=== PATIENT | female | born 1995 | race Caucasian/White ===

== ENCOUNTER 2017-07-07 06:43 | Emergency (ER) | payer OTHER ==
[2017-07-07 06:58] VITALS: BMI 25.0
[2017-07-07 07:04] VITALS: PULSE 78
--- NOTE | 2017-07-07 08:28 | ED PDOC ---
HPI: Headache Time Seen by Provider: 07/07/17 08:15 Chief Complaint (Nursing): Headache Chief Complaint (Provider): Headache History Per: Patient History/Exam Limitations: no limitations Onset/Duration Of Symptoms: Days (x 3) Current Symptoms Are (Timing): Still Present Additional Complaint(s): Felix is a 21 year old female, with a history of migraines, who presents to the Emergency department with headache since this morning. Patient states while she was driving to work, she felt a bad headache compared to other headaches before. not thunderclap though. Patient states she feels more of the headache on her left part of her head. Reports she vomited 3 times since onset and feels "numb" on right arm - that resolved. Admits to taking medication with no relief. PMD: Roberta Headley Past Medical History Reviewed: Historical Data, Nursing Documentation, Vital Signs Vital Signs: Last Vital Signs Temp 97.4 F L 07/07/17 06:58 Pulse 78 07/07/17 06:58 Resp 16 07/07/17 06:58 BP 112/44 L 07/07/17 06:58 Pulse Ox 100 07/07/17 06:58 - Medical History PMH: Migraine - Surgical History Surgical History: No Surg Hx - Family History Family History: States: Unknown Family Hx - Social History Current smoker - smoking cessation education provided: No - Home Medications Home Medications: Ambulatory Orders Medication Instructions Recorded Ibuprofen [Motrin] 600 mg PO Q6H PRN #20 tab 07/07/17 - Allergies Allergies/Adverse Reactions: Allergies Allergy/AdvReac Type Severity Reaction Status Date / Time No Known Allergies Allergy Verified 07/07/17 06:57 Physical Exam - Reviewed Nursing Documentation Reviewed: Yes Vital Signs Reviewed: Yes - Physical Exam Appears: Positive for: Well, Non-toxic, No Acute Distress Head Exam: Positive for: ATRAUMATIC, NORMAL INSPECTION, NORMOCEPHALIC Skin: Positive for: Normal Color, Warm, DRY Eye Exam: Positive for: EOMI, Normal appearance, PERRL ENT: Positive for: Normal ENT Inspection Neck: Positive for: Normal, Painless ROM Cardiovascular/Chest: Positive for: Regular Rate, Rhythm Respiratory: Positive for: CNT, Normal Breath Sounds Gastrointestinal/Abdominal: Positive for: Soft. Negative for: Tenderness Back: Positive for: Normal Inspection Extremity: Positive for: Normal ROM Neurologic/Psych: Positive for: Alert, executive administrator II-XII, Oriented (x 3), Gait (stable) . Negative for: Motor/Sensory Deficits, Aphasia, Facial Droop - Laboratory Results Result Diagrams: 07/07/17 08:20 07/07/17 08:20 Urine POC: Negative - ECG O2 Sat by Pulse Oximetry: 100 (RA) Pulse Ox Interpretation: Normal Medical Decision Making Medical Decision Making: Time: 08:17 Impression: 21 year old female who presents with headache normal neurological exam Plan: - CT Head without Contrast - CMP - CBC - Sodium Chloride 0.9% 1,000 ml IV 999 mls/hr - Pepcid 20 mg IVP - Reglan 20 mg Time: 09:34 CT Head without Contrast FINDINGS: HEMORRHAGE: No intracranial hemorrhage. BRAIN: No mass effect or edema. No atrophy or chronic microvascular ischemic changes. VENTRICLES: Unremarkable. No hydrocephalus. CALVARIUM: Unremarkable. PARANASAL SINUSES: Right maxillary sinus mucous retention cyst. MASTOID AIR CELLS: Unremarkable as visualized. No inflammatory changes. OTHER FINDINGS: Dysconjugate gaze. IMPRESSION: No acute intracranial pathology. Time: 10:56 - Toradol 30 mg IV Patient is feeling better and will be discharged as outpatient. Upon provider evaluation patient is medically stable, and requires no further treatment in the ED at this time. Patient will be discharged with Rx for motrin. Counseling was provided and all questions were answered regarding diagnosis and need for follow up with neurologist. There is agreement to discharge plan. Return if symptoms persist or worsen. Scribe Attestation: Documented by Markos Perez, acting as a scribe for Jeimy Block MD Provider Scribe Attestation: All medical record entries made by the Scribe were at my direction and personally dictated by me. I have reviewed the chart and agree that the record accurately reflects my personal performance of the history, physical exam, medical decision making, and the department course for this patient. I have also personally directed, reviewed, and agree with the discharge instructions and disposition. Disposition - Clinical Impression Clinical Impression: Migraine - Patient ED Disposition Is Patient to be Admitted: No - Disposition Referrals: [facility] [Outside] [facility] [Outside] Sedrick Moore MD [Staff Provider] - Disposition: Routine/Home Disposition Time: 10:05 Condition: IMPROVED Additional Instructions: follow up with your primary doctor/neurologist in 1-2 days return to the ED with any worsening or concerning symptoms. Prescriptions: Ibuprofen [Motrin] 600 mg PO Q6H PRN #20 tab PRN Reason: Pain, Moderate (4-7) Instructions: Migraine Headache (ED), Acute Headache (ED) Forms: [facility] ([place]), [facility] ED School/Work Excuse
[2017-07-07] MEDS: Sodium Chloride 0.9% 1,000 ML IV STA (08:31)
[2017-07-07 08:40] LABS: BASO % 0.6 % (0.0-2.0); EOS # 0.1 K/uL (0.0-0.7); EOS % 1.4 % (0.0-4.0); HEMATOCRIT 40.2 % (34.0-47.0); LYMPH # 1.7 K/uL (1.0-4.3); LYMPH % 21.5 % (20.0-40.0); MEAN CELL VOLUME 91.2 fl (81.0-99.0); MEAN CORPUSCULAR HEMOGLOBIN 29.3 pg (27.0-31.0); MEAN CORPUSCULAR HGB CONC 32.1 g/dL (33.0-37.0); MEAN PLATELET VOLUME 8.6 fl (7.2-11.7); MONO # 0.6 K/uL (0.0-0.8); MONO % 8.1 % (0.0-10.0); NEUT # 5.5 K/uL (1.8-7.0); NEUT % 68.4 % (50.0-75.0); RED CELL DISTRIBUTION WIDTH 12.5 % (11.5-14.5)
[2017-07-07 09:03] LABS: ALB/GLOB RATIO 1.3 (1.0-2.1); ALKALINE PHOSPHATASE 58 U/L (38-126); ALT/SGPT 40 U/L (9-52); AST/SGOT 27 U/L (14-36); BILIRUBIN,TOTAL 0.5 mg/dl (0.2-1.3); BLOOD UREA NITROGEN 12 mg/dl (7-17); CALCIUM 8.8 mg/dL (8.4-10.2); CARBON DIOXIDE 23 mmol/L (22-30); CHLORIDE 108 mmol/L (98-107); GFR AFRICAN-AMERICAN > 60; GLUCOSE,RANDOM 101 mg/dL (65-105); SODIUM 142 mmol/l (132-148); TOTAL PROTEIN 7.8 G/DL (6.3-8.2)
--- NOTE | 2017-07-07 09:36 | CT ---
PROCEDURE: CT HEAD WITHOUT CONTRAST. HISTORY: headache COMPARISON: CT head dated 10/30/2012. TECHNIQUE: Axial computed tomography images were obtained through the head/brain without intravenous contrast. Radiation dose: Total exam DLP = 1122.1 mGy-cm. This CT exam was performed using one or more of the following dose reduction techniques: Automated exposure control, adjustment of the mA and/or kV according to patient size, and/or use of iterative reconstruction technique. FINDINGS: HEMORRHAGE: No intracranial hemorrhage. BRAIN: No mass effect or edema. No atrophy or chronic microvascular ischemic changes. VENTRICLES: Unremarkable. No hydrocephalus. CALVARIUM: Unremarkable. PARANASAL SINUSES: Right maxillary sinus mucous retention cyst. MASTOID AIR CELLS: Unremarkable as visualized. No inflammatory changes. OTHER FINDINGS: Dysconjugate gaze. IMPRESSION: No acute intracranial pathology.
[2017-07-07 11:07] VITALS: BP 110/78; RESP 17; TEMP 97
[2017-07-07 15:41] VITALS: O2SAT 100
== END 2017-07-07 11:08 | disposition home or self-care (01) ==
LOC: H.ER 06:43
DX: G43.909 Migraine, unspecified, not intractable, without status migrainosus (principal)
CPT/HCPCS: 70450; 80053; 81025; 85025; 96374; 96375; 99285; J1885; J2765; J7040

== ENCOUNTER 2017-09-06 11:22 | Emergency (ER) | payer BC, OTHER ==
[2017-09-06 11:23] VITALS: BMI 25.0
[2017-09-06 11:29] VITALS: BP 118/74; PULSE 88; RESP 18; TEMP 97.7; O2SAT 97
[2017-09-06] MEDS ORDERED: Promethazine/Cod 6.25mg-10mg/5ml Syr UD PO STA (12:06)
--- NOTE | 2017-09-06 12:15 | ED PDOC ---
HPI: General Adult Time Seen by Provider: 09/06/17 11:37 Chief Complaint (Nursing): Cough, Cold, Congestion Chief Complaint (Provider): Flu-like Illness History Per: Patient History/Exam Limitations: no limitations Onset/Duration Of Symptoms: Days (x2) Current Symptoms Are (Timing): Still Present Additional Complaint(s): 21 year old female with a past medical history of migraines, who presents to the ED complaining of cough, body aches, and headaches x2 days. Patient states cough is dry. Patient reports a history of migraines and states she also developed bilateral headaches for which she took Excedrin, but states she hasn' t taken anything today. Denies any sore throat, chest pain, shortness of breath , vomiting, diarrhea, or fevers. Reports no flu vaccine. PMD: None provided Past Medical History Reviewed: Historical Data, Nursing Documentation, Vital Signs Vital Signs: Last Vital Signs Temp 97.7 F 09/06/17 11:27 Pulse 88 09/06/17 11:27 Resp 18 09/06/17 11:27 BP 118/74 09/06/17 11:27 Pulse Ox 97 09/06/17 12:18 - Medical History PMH: Migraine - Surgical History Surgical History: No Surg Hx - Family History Family History: States: Unknown Family Hx - Immunization History Hx Influenza Vaccination: No - Home Medications Home Medications: Ambulatory Orders Medication Instructions Recorded Ibuprofen [Motrin] 600 mg PO Q6H PRN #20 tab 07/07/17 Ibuprofen [Motrin Tab] 800 mg PO Q6 PRN #20 tab 09/06/17 Oseltamivir [Tamiflu] 75 mg PO BID #10 cap 09/06/17 Promethazine/Codeine 5 ml PO Q6 PRN #100 ml 09/06/17 [Phenergan/Codeine Oral Syrup] - Allergies Allergies/Adverse Reactions: Allergies Allergy/AdvReac Type Severity Reaction Status Date / Time No Known Allergies Allergy Verified 07/07/17 06:57 Review of Systems ROS Statement: Except As Marked, All Systems Reviewed And Found Negative Constitutional: Positive for: Other (body aches). Negative for: Fever ENT: Negative for: Throat Pain Cardiovascular: Negative for: Chest Pain Respiratory: Positive for: Cough. Negative for: Shortness of Breath Gastrointestinal: Negative for: Vomiting, Diarrhea Neurological: Positive for: Headache Physical Exam - Reviewed Nursing Documentation Reviewed: Yes Vital Signs Reviewed: Yes - Physical Exam Appears: Positive for: Non-toxic, No Acute Distress Head Exam: Positive for: ATRAUMATIC, NORMAL INSPECTION, NORMOCEPHALIC Skin: Positive for: Normal Color, Warm, Dry. Negative for: Rash Eye Exam: Positive for: EOMI, Normal appearance, PERRL ENT: Positive for: Normal ENT Inspection Neck: Positive for: Normal, Painless ROM, Supple Cardiovascular/Chest: Positive for: Regular Rate, Rhythm. Negative for: Murmur Respiratory: Positive for: Normal Breath Sounds. Negative for: Respiratory Distress Gastrointestinal/Abdominal: Positive for: Normal Exam, Bowel Sounds, Soft. Negative for: Tenderness Back: Positive for: Normal Inspection. Negative for: L CVA Tenderness, R CVA Tenderness, Vertebral Tenderness Extremity: Positive for: Normal ROM. Negative for: Pedal Edema, Deformity Neurologic/Psych: Positive for: Alert, Oriented (x3). Negative for: Motor/ Sensory Deficits - ECG O2 Sat by Pulse Oximetry: 97 (RA) Pulse Ox Interpretation: Normal Medical Decision Making Medical Decision Making: Time: 12:06 Initial Impression: Flu-like symptoms and headaches. Differential diagnoses include, but are not limited to influenza and associated migraine headaches. Initial Plan: --Motrin 600 mg PO --Promethazine/Codeine 5 ml PO --Reevaluation Scribe Attestation: Documented by Clarence Mejia, acting as a scribe for Dulce Kay MD. Provider Scribe Attestation: All medical record entries made by the Scribe were at my direction and personally dictated by me. I have reviewed the chart and agree that the record accurately reflects my personal performance of the history, physical exam, medical decision making, and the department course for this patient. I have also personally directed, reviewed, and agree with the discharge instructions and disposition. Disposition - Clinical Impression Clinical Impression: Flu-like symptoms, Headache - Patient ED Disposition Is Patient to be Admitted: No Doctor Will See Patient In The: Office Counseled Patient/Family Regarding: Studies Performed, Diagnosis, Need For Followup - Disposition Referrals: [facility] [Outside] Disposition: Routine/Home Disposition Time: 12:32 Condition: GOOD Additional Instructions: Take your medications as instructed. Follow up with your PCP in 2-3 days. Prescriptions: Ibuprofen [Motrin Tab] 800 mg PO Q6 PRN #20 tab PRN Reason: Headache Oseltamivir [Tamiflu] 75 mg PO BID #10 cap Promethazine/Codeine [Phenergan/Codeine Oral Syrup] 5 ml PO Q6 PRN #100 ml PRN Reason: Nausea/Vomiting Instructions: Migraine Headache (DC), Flu
[2017-09-06] MEDS ORDERED: Promethazine/Cod 6.25mg-10mg/5ml Syr UD ONE (12:17)
== END 2017-09-06 12:54 | disposition home or self-care (01) ==
LOC: H.ER 11:22
DX: R51 Headache (principal); J11.1 Influenza due to unidentified influenza virus with other respiratory manifestations; M79.1 Myalgia